=== PATIENT | female | born 1950 | race Caucasian/White ===

== ENCOUNTER → 2017-03-11 | Outpatient (CLI) | payer MEDICARE, BC ==
--- NOTE | 2017-03-13 09:27 | MRI ---
EXAM DESCRIPTION: Lumbar Spine w/o Contrast MRI. CLINICAL HISTORY: LOW BACK PAIN COMPARISON: MRI lumbar spine without and with contrast 05/18/2013. TECHNIQUE: Multiplanar, multiple standard sequences, non contrast MRI, lumbar spine. FINDINGS: The L5 vertebra is transitional, partially sacralized, with partial articulation of the left transverse process with the sacrum and left iliac bone. Similar appearance on the prior study The L5-S1 disc space is decreased with no bulging. Sacralized spinal canal and foramina which are narrowed.) Neural cyst below the disc space in the bony foramen. Sacralized facets with mild arthrosis. Minimal marrow edema signal in the bilateral L5 pedicles. L4-5: Disc desiccation and minimal posterior bulge. Grade 1 anterolisthesis. Moderate left foraminal narrowing and mild right foraminal narrowing. Moderate facet arthrosis and ligamentum flavum hypertrophy narrowing the transverse diameter of the canal. Moderate canal narrowing. L3-4: Disc desiccation with trace anterolisthesis and bulging posterior. Mild facet arthrosis and posterior ligament hypertrophy. AP canal diameter 11 mm. Bright T1 and T2 signal well-circumscribed in the posterior aspect of the inferior L3 endplate mild left foraminal narrowing. Right foramen patent. L2-3: Disc desiccation and anterior bulging and endplate ridging. Bright T1 and T2 signal in the anterior aspect of the superior L3 endplate indicating Modic type II reaction. Trace posterior disc bulge. Mild to moderate posterior ligament hypertrophy L1-2: Mild disc desiccation. No significant bulging. Minimal hypertrophy of the posterior ligaments. Canal and foramina are patent. Conus terminates at this level. Posterior ligaments with minimal hypertrophy and facet arthrosis. T12-L1: Mild disc desiccation with anterior endplate ridging. Canal and foramina are patent. Facets are unremarkable. Paravertebral soft tissues are unremarkable.. Otherwise normal marrow signal in the remaining vertebral bodies and the posterior elements. Vertebral bodies are not compressed at any level. IMPRESSION: 1. Sacralized L5 vertebral body with hypoplastic L5-S1 disc bulging. Sacralized L5-S1 foraminal and canal. Facets which are demonstrating degenerative changes. Marrow edema in the left L5 pedicle was also seen on the prior study. 2. Grade 1 anterolisthesis at L4-5 has progressed since the prior study with increased bilateral foraminal narrowing abutting the exiting bilateral L4 nerve roots. Synovial cyst on the left L4-5 facet is no longer present. Increased narrowing of the transverse canal. And facet arthrosis with mild canal narrowing. Bilateral foramina are patent. 3. Stable disc desiccation and trace anterolisthesis L3-4 facet arthrosis, ligamentum flavum hypertrophy and canal narrowing. Able hemangioma inferior L3 endplate. 4. Stable disc desiccation with anterior disc bulge. Disc space loss and mild to moderate spondylosis unchanged. Electronically signed by: Burke Wilder MD 03/13/2017 9:26 AM CDT
--- NOTE | 2017-03-15 15:00 | MAM ---
EXAM DESCRIPTION: 3D Screening BILATERAL : Digital Mammography. CLINICAL HISTORY: 66 years Female SCREENING . No complaints. Remote family history of breast cancer. Postmenopausal. Taking HRT 5 or more years ago. COMPARISON: 2-D digital screening bilateral study 01/17/2016. 2-D digital diagnostic right breast examination 03/08/2016. Reports from prior examinations also reviewed. TECHNIQUE: Bilateral CC and MLO projection full-field images, 3-D tomosynthesis digital mammographic technique. Also bilateral synthesized CC/ MLO full-field images. CAD not utilized. FINDINGS: The breast parenchymal density pattern is: Heterogeneously dense breast tissue, which may obscure small masses. No skin thickening or nipple retraction bilateral solitary microcalcifications. Bilateral vascular calcifications. Persistent mass density lower outer quadrant right breast with relatively well-defined borders, similar density to the surrounding fibroglandular tissues. Right axillary lymph node. No focal, stellate mass or density, focal asymmetry , and no suspicious microcalcifications bilaterally. Stable mammograms compared to prior study, taking into account differences in mammographic technique IMPRESSION: BI-RADS CATEGORY: 2 - BENIGN FINDINGS. FOLLOW UP: Routine digital bilateral screening, one year interval from February 2017. Written communication explaining the IMPRESSION and follow-up, will be mailed to the patient and referring health care provider. According to the [employer], yearly mammograms are recommended starting at age 40 and continuing as long as a woman is in good health. Any breast change noted on a breast self-exam should be reported promptly to the patient's healthcare provider. Breast MRI is recommended for women with an approximately 20-25% or greater lifetime risk of breast cancer, including women with a strong family history of breast or ovarian cancer and women who have been treated for Hodgkin's disease. A negative mammographic report should not delay tissue diagnosis in patients with significant clinical history or physical findings. Extremely dense breast tissue limits the sensitivity of digital mammography. Electronically signed by: Burke Wilder MD 03/15/2017 2:58 PM CDT
== END | disposition home or self-care (01) ==
LOC: MRI 14:31
PROVIDERS: ATTEND Family Medicine
DX: M54.5 Low back pain (principal); M54.16 Radiculopathy, lumbar region; Z12.31 Encounter for screening mammogram for malignant neoplasm of breast; M54.9 Dorsalgia, unspecified
CPT/HCPCS: 72148; 77063; G0202

== ENCOUNTER → 2019-03-19 | Outpatient (CLI) | payer MEDICARE | LOC: GMAE 10:27 | PROVIDERS: ATTEND Family Medicine | DX: E03.9 Hypothyroidism, unspecified (principal); E78.2 Mixed hyperlipidemia; Z79.899 Other long term (current) drug therapy ==

== ENCOUNTER → 2019-03-20 | Outpatient (CLI) | payer MEDICARE ==
--- NOTE | 2019-03-24 14:31 | MAM ---
EXAM DESCRIPTION: 3D Screening BILATERAL : Digital Mammography. CLINICAL HISTORY: 68 years Female ANNUAL SCREENING . No complaints. No personal history of breast cancer. Remote family history of breast cancer. Menarche age 17. No childbirth. Postmenopausal 15+ years. HRT 5 or more years ago.. Lifetime risk of developing breast cancer (Tyrer-Cuzick model)(%): 5.9. COMPARISON: Bilateral screening digital breast tomosynthesis 11 March 2017.. TECHNIQUE: Bilateral CC and MLO projection full-field images, digital tomosynthesis mammographic technique. Bilateral digital 2-D full-field MLO images. CAD not available for tomosynthesis or 2-D images. FINDINGS: The breast parenchymal density pattern is: Scattered areas of fibroglandular density. No skin thickening or nipple retraction. Bilateral solitary microcalcifications. Bilateral secretory calcifications. Left breast axillary lymph nodes. Mass density well-circumscribed and lobulated in lateral right breast at 9:00 is stable.. No new focal, stellate mass or density, focal asymmetry , and no suspicious microcalcifications bilaterally. Stable mammograms compared to prior study. IMPRESSION: Benign exam. BIRAD CATEGORY: 2 BENIGN FINDINGS. RECOMMENDATIONS: FOLLOW UP: Routine digital bilateral mammographic screening, one year interval from March 2019. Written communication explaining the IMPRESSION and follow-up, will be mailed to the patient and referring health care provider. According to the [employer], yearly mammograms are recommended starting at age 40 and continuing as long as a woman is in good health. Any breast change noted on a breast self-exam should be reported promptly to the patient's healthcare provider. Breast MRI is recommended for women with an approximately 20-25% or greater lifetime risk of breast cancer, including women with a strong family history of breast or ovarian cancer and women who have been treated for Hodgkin's disease. A negative mammographic report should not delay tissue diagnosis in patients with significant clinical history or physical findings. Extremely dense breast tissue limits the sensitivity of digital mammography. Electronically signed by: Burke Wilder MD 03/24/2019 2:29 PM EXCELLENCE MANAGER
== END ==
LOC: MAMMO 12:05
PROVIDERS: ATTEND Family Medicine
DX: Z12.31 Encounter for screening mammogram for malignant neoplasm of breast (principal)

== ENCOUNTER → 2019-05-21 | Outpatient (CLI) | payer MEDICARE ==
--- NOTE | 2019-05-22 08:45 | US ---
EXAM DESCRIPTION: Thyroid CLINICAL HISTORY: 69 years Female, NODULE COMPARISON: None. TECHNIQUE: Real-time sonographic images of the thyroid are obtained. FINDINGS: Right lobe thyroid measures 4.7 x 1.7 x 1.7 cm. An ill-defined hypoechoic solid nodule in the posterior mid pole of the right lobe measures 2.0 x 0.9 x 0.8 cm. Lesion is wider than tall and without calcifications consistent with TR 4 nodule. Left lobe thyroid measures 3.8 x 1.6 x 1.2 cm. The isthmus measures 2 mm in thickness. Thyroid is diffusely heterogeneous in echogenicity. IMPRESSION: Diffuse heterogeneous echogenicity of the thyroid is seen. Ill-defined 2 cm solid nodule in the midpole right lobe representing TR 4 lesion. Recommend fine-needle aspiration of this nodule. ACR TI-RADS recommendations: TR5 (>/=7 points) - FNA if >/=1 cm, follow-up if 0.5 - 0.9 cm every year for 5 years TR4 (4-6 points) - FNA if >/=1.5 cm, follow-up if 1 - 1.4 cm in 1, 2, 3 and 5 years TR3 (3 points) - FNA if >/=2.5 cm, follow -up if 1.5 - 2.4 cm in 1, 3 and 5 years TR2 (2 points) and TR1 (0 points) - No FNA or follow-up * ACR TI-RADS recommends that no more than two nodules with the highest ACR TI-RADS total point should be biopsied and no more than four nodules should be followed. Electronically signed by: Rodrick Almonte MD 05/22/2019 8:43 AM ACCOUNTS PAYABLE OR RECEIVABLE CLERK
== END ==
LOC: US 14:30
PROVIDERS: ATTEND Family Medicine
DX: E04.1 Nontoxic single thyroid nodule (principal)

== ENCOUNTER → 2019-06-16 | Outpatient (CLI) | payer MEDICARE ==
--- NOTE | 2019-06-17 14:45 | US ---
Thyroid Biopsy, Image-Guided: Biopsy of Thyroid: Ultrasound CLINICAL INFORMATION: 69 years Female. Suspicious nodule posterior right thyroid lobe. TECHNIQUE: Procedure was explained to the patient with risks and benefits. The patient gave verbal and written consent. Sterile preparation draping. 1% xylocaine dermal anesthetic 9-1 mixture with sodium bicarbonate. Sterile ultrasound guidance. A total of 6 passes right thyroid lobe nodule; 3 needle samplings with a separate 1.5 inch, 25-gauge needle per sample, and 3 aspirations, with a separate 1.5 inch, 25-gauge needle/10-cc syringe set, per aspiration. Each sample was placed on a separate slide and fixed in 95% alcohol container. Saccomanno fluid drawn into aspirate needle and rinse injected into single Saccomanno container. Specimens to be sent for pathologic examination at remote facility. . Patient tolerated procedure well. Biopsy #: 1 Nodule reference number based on prior diagnostic ultrasound:other Maximum size: 2.0 cm Location: right; mid ACR TI-RADS risk category: TR4 (4-6 points) Reason for biopsy: meets ACR TI-RADS criteria Complications: None. FINDINGS: Multiple images demonstrate the echogenic needle within the nodule/mass during sampling and aspirations. IMPRESSION: Successful ultrasound guided fine needle aspiration of right thyroid nodule. ACR TI-RADS Risk Category TR 4 Electronically signed by: Burke Wilder MD 06/17/2019 2:43 PM CHILD CARE TEACHER
== END ==
LOC: US 11:11
PROVIDERS: ATTEND Family Medicine
DX: E04.1 Nontoxic single thyroid nodule (principal)

== ENCOUNTER → 2019-10-06 | Outpatient (CLI) | payer MEDICARE | LOC: GMAE 12:05 | PROVIDERS: ATTEND Family Medicine | DX: E53.8 Deficiency of other specified B group vitamins (principal); E03.9 Hypothyroidism, unspecified; E78.2 Mixed hyperlipidemia ==